=== PATIENT | male | born 2000 | race Two or more races ===

== ENCOUNTER 2024-10-19 14:07 | Emergency (ER) | payer OTHER ==
[~2024-10-19] VITALS: Ht 152.4 cm; Wt 93.0 kg
[2024-10-19] MEDS ORDERED: CIPROFLOXACIN IN 5 % DEXTROSE 400 MG/200 ML PIGGYBAG IV STA (16:49)
[2024-10-19] MEDS ORDERED: CIPRO500 MG PO (18:22)
== END 2024-10-19 20:05 | disposition home or self-care (01) ==
LOC: ER 14:07
DX: H92.21 Otorrhagia, right ear (principal); Z88.1 Allergy status to other antibiotic agents; Z91.040 Latex allergy status